=== PATIENT | female | born 1955 | race Caucasian/White ===

== ENCOUNTER 2017-09-22 08:03 | Day surgery (SDC) | payer MEDICARE, OTHER ==
[2017-09-22 10:26] LABS: POTASSIUM 4.3 mmol/L (3.5-5.1)
[2017-09-22] MEDS ORDERED: EPHEDrine SULFATE 50 MG/5 ML SYG (11:04)
[2017-09-22] MEDS ORDERED: PROPOFOL 40 ML (11:04)
== END 2017-09-22 17:19 | disposition home or self-care (01) ==
LOC: GIL 08:03
DX: R19.5 Other fecal abnormalities (principal); K29.50 Unspecified chronic gastritis without bleeding; K31.7 Polyp of stomach and duodenum; D12.4 Benign neoplasm of descending colon; D12.3 Benign neoplasm of transverse colon; K64.4 Residual hemorrhoidal skin tags; K64.8 Other hemorrhoids; K57.90 Diverticulosis of intestine, part unspecified, without perforation or abscess without bleeding; E11.9 Type 2 diabetes mellitus without complications; E78.5 Hyperlipidemia, unspecified; I12.9 Hypertensive chronic kidney disease with stage 1 through stage 4 chronic kidney disease, or unspecified chronic kidney disease; N18.9 Chronic kidney disease, unspecified
CPT/HCPCS: 43239; 82962; 84132; 88305; 88312

== ENCOUNTER 2018-05-17 08:15 | Day surgery (SDC) | payer MEDICARE, OTHER ==
[~2018-05-17 08:15] MED LIST: CEFAZOLIN 1 GM INJ; EPHEDrine SULFATE 50 MG/5 ML SYG
[2018-05-17 09:51] LABS: INR 0.89; PROTIME 12.1 Sec (11.9-14.9); PT RATIO 0.9
[2018-05-17 09:52] LABS: PARTIAL THROMBOPLASTIN TIME 27.1 Sec (23.0-35.0)
[2018-05-17] MEDS ORDERED: PROPOFOL 20 ML (10:12)
[2018-05-17] MEDS ORDERED: LIDOCAINE 2% (SDV) 5 ML INJ (10:12)
[2018-05-17] MEDS: INSULIN REGULAR, HUMAN 100 UNIT/1 ML 3ML VIAL SC (10:19)
[2018-05-17 10:53] LABS: ALANINE AMINOTRANSFERASE 19 IU/L (13-69); ALBUMIN 4.2 g/dl (3.3-4.9); ALBUMIN/GLOBULIN RATIO 1.31; ALKALINE PHOSPHATASE 75 IU/L (42-121); ANION GAP 17 (5-13); ASPARTATE AMINO TRANSFERASE 23 IU/L (15-46); CALCIUM 9.1 mg/dl (8.4-10.2); CARBON DIOXIDE 21 mmol/L (21-31); CHLORIDE 99 mmol/L (97-110); Estimated GFR 8 mL/min (>60); POTASSIUM 4.5 mmol/L (3.5-5.1); SODIUM 137 mmol/L (135-144); TOTAL PROTEIN 7.4 g/dl (6.1-8.1)
[2018-05-17 10:57] LABS: BLOOD UREA NITROGEN 89 mg/dl (7-20); CREATININE 5.69 mg/dl (0.44-1.00)
[2018-05-17 10:58] LABS: GLUCOSE 326 mg/dl (70-220)
[2018-05-17] MEDS: GELATIN SIZE 100 SPONGE (11:02)
[2018-05-17] MEDS: THROMBIN 5000 UNIT VIAL (11:04)
[2018-05-17] MEDS: HEPARIN 1000 UNITS/ML 10 ML INJ (11:04)
[2018-05-17] MEDS: LIDOCAINE 1% (MPF) 30 ML INJ (11:06)
[2018-05-17] MEDS ORDERED: EPHEDrine SULFATE 50 MG/5 ML SYG IV (11:30)
[2018-05-17] MEDS ORDERED: LABETALOL HCL 20MG INJ IV (11:30)
[2018-05-17] MEDS ORDERED: MIDAZOLAM 1 MG/ML 2 ML INJ IV (11:30)
[2018-05-17] MEDS ORDERED: ONDANSETRON 4 MG INJ IV (11:30)
[2018-05-17] MEDS ORDERED: DIPHENHYDRAMINE 50 MG INJ IV (11:30)
[2018-05-17] MEDS ORDERED: MEPERIDINE 25 MG INJ IV (11:30)
[2018-05-17] MEDS ORDERED: FENTAnyl 50 MCG/ML VIAL IV ×2 (11:30)
[2018-05-17] MEDS ORDERED: OXYCODONE/ACETAMINOPHEN (5/325) TAB PO (11:30)
[2018-05-17] MEDS: FENTAnyl 50 MCG/ML VIAL IV ×2 (12:06→12:18)
[2018-05-17] MEDS: hydrALAzine 20 MG INJ IV (12:25)
[2018-05-17] MEDS: METOCLOPRAMIDE 10 MG INJ IV (12:51)
[2018-05-17] MEDS: OXYCODONE/ACETAMINOPHEN (5/325) TAB PO (13:05)
== END 2018-05-17 13:28 | disposition home or self-care (01) ==
LOC: SDS 08:15
DX: T82.590A Other mechanical complication of surgically created arteriovenous fistula, initial encounter (principal); E11.22 Type 2 diabetes mellitus with diabetic chronic kidney disease; I12.0 Hypertensive chronic kidney disease with stage 5 chronic kidney disease or end stage renal disease; N18.6 End stage renal disease; E78.5 Hyperlipidemia, unspecified; M06.9 Rheumatoid arthritis, unspecified
CPT/HCPCS: 36832; 71045; 80053; 82962; 85610; 85730; 93005